=== PATIENT | male | born 1995 | race Caucasian/White ===

== ENCOUNTER 2017-04-01 02:37 | Emergency (ER) | payer OTHER ==
[2017-04-01 02:49] VITALS: BP 143/70
--- NOTE | 2017-04-01 03:04 | EDM.PDOC ---
ED HPI GENERAL MEDICAL PROBLEM - General Chief Complaint: Upper Extremity Injury/Pain Stated Complaint: crush injury Time Seen by Provider: 04/01/17 02:55 Source of Information: Reports: Patient, Old Records ([facility] EMR. No paper hospital chart available.) History Limitations: Reports: No Limitations - History of Present Illness INITIAL COMMENTS - FREE TEXT/NARRATIVE: The patient was brought to the emergency room via transport vehicle from [facility] for evaluation of a minor crush injury of his second finger of his left hand, which occurred at work at about 02:15 hours this evening. He caught his second between 2 pieces of metal with no history of paresthesias, neurological deficits , foreign body, or other complaints or injuries. The patient also denies any recent fever, cough, wheezing, dyspnea, etc... He is right-handed. His last tetanus booster was in this facility on 10/29/15 with TdaP given. Onset: Today, Sudden Onset Date: 04/01/17 Onset Time: 02:15 Duration: Constant Location: Reports: Upper Extremity, Left. Denies: Head, Neck, Chest, Abdomen, Back, Radiates to Quality: Reports: Same as Previous Episode, Throbbing Severity: Mild Improves with: Reports: Rest Worsens with: Reports: Movement Context: Reports: Trauma (As above) Associated Symptoms: Reports: No Other Symptoms. 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) Left 1st Digit Pain Score (Numeric/FACES): 1 (Injury site actually second digit of left hand) - Related Data Allergies Allergy/AdvReac Type Severity Reaction Status Date / Time No Known Allergies Allergy Verified 04/01/17 02:38 Home Meds: Home Meds Naproxen Sodium [Aleve] 220 mg PO DAILY PRN 10/29/15 [History] Non-Formulary Medication [NF Drug] 1 each PO DAILY PRN 04/01/17 [History] Protein Supplement [Protein Powder] 1 dose PO DAILY PRN 04/01/17 [History] Past Medical History HEENT History: Reports: Allergic Rhinitis, Impaired Vision, Other (See Below) Other HEENT History: he wears glasses Cardiovascular History: Reports: None. Denies: Afib, Aneurysm, Arrhythmia, Blood Clots/VTE/DVT, CAD, Heart Murmur, Hypertension Respiratory History: Reports: None. Denies: Asthma, PE Gastrointestinal History: Reports: None. Denies: Celiac Disease, Gastritis, GERD, GI Bleed, Inflammatory Bowel Disease, Irritable Bowel Syndrome, Jaundice, PUD Genitourinary History: Reports: None. Denies: BPH, Chronic Renal Insuffiency, Renal Calculus, STD, Urinary Incontinence, UTI, Recurrent Musculoskeletal History: Reports: Arthritis, Back Pain, Chronic, Fracture, Osteoarthritis, SLE. Denies: Gout, RA Other Musculoskeletal History: Possible history of fractures of the knockles of the right hand however never evaluated, coccyx fracture at about age 13 Neurological History: Reports: Concussion, Headaches, Chronic, Head Trauma, Other (See Below). Denies: Seizure Other Neuro History: 4 previous head concussions between ages 9 and 16 Psychiatric History: Reports: None. Denies: Abuse, Victim of, ADD, Addiction, Anxiety, Depression, Psych Hospitalization(s), PTSD, Suicide Attempt Endocrine/Metabolic History: Reports: None. Denies: Diabetes, Type I, Diabetes , Type II, Hypothyroidism, IDDM Hematologic History: Reports: None. Denies: Anemia, Blood Transfusion(s) Immunologic History: Reports: None. Denies: AIDS, HIV Oncologic (Cancer) History: Reports: None Dermatologic History: Reports: None. Denies: Eczema, Psoriasis - Infectious Disease History Infectious Disease History: Reports: None. Denies: C-Difficile, Chicken Pox, Measles, Meningitis, Mononucleosis, MRSA, Mumps, Rheumatic Fever, Rubella, Scarlet Fever, Shingles, VRE - Past Surgical History Head Surgeries/Procedures: Reports: None HEENT Surgical History: Reports: None. Denies: Adenoidectomy, Eye Surgery, Laser Surgery, LASIK, Myringotomy w Tube(s), Naso-Sinus Surgery, Oral Surgery, Tonsillectomy Cardiovascular Surgical History: Reports: None. Denies: Varicose Respiratory Surgical History: Reports: None. Denies: Thoracentesis GI Surgical History: Reports: None. 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 Denies: Thyroid Biopsy Neurological Surgical History: Denies: C-Spine, Discectomy, Laminectomy, Lumbar Spine, Spinal Fusion, Vertebroplasty Musculoskeletal Surgical History: Reports: None. Denies: Arthroscopic Procedure , Carpal Tunnel, Ganglion Cyst, ORIF, Shoulder Surgery Oncologic Surgical History: Reports: None Dermatological Surgical History: Reports: None Social & Family History - Family History Respiratory: Reports: COPD, Other (See Below) Other Respiratory Family Hisory: COPD and mother with history of tobacco use Oncologic: Reports: Lung, Metastatic, Pancreatic, Other (See Below) Other Oncologic Family History: Paternal grandmother with fatal lung cancer at age 44 with history of tobacco use, fatal pancreatic cancer in maternal aunt at age 56 with brain and lung metastases - Tobacco Use Smoking Status *Q: Current Every Day Smoker Tobacco Use Within Last Twelve Months: Snuff/Dip Other Tobacco Use Within Last Twelve Months: 1 ppd of cigarettes between ages 15 and 22 Years of Tobacco use: 5 (Chewing tobacco use at age 20) Packs/Tins Daily: 0.1 Used Tobacco, but Quit: No Smoking Cessation Information Provided To Patient: Yes Second Hand Smoke Exposure: No Second Hand Smoke Education Provided: No - Caffeine Use Caffeine Use: Reports: Coffee (6 cups per day), Energy Drinks (4 cans per day), Tea (1 bottle every 2 days). Denies: Soda - Alcohol Use Alcohol Use History: Yes Days Per Week of Alcohol Use: 0 (No previous DWIs, problems with alcohol abuse, etc.) Number of Drinks Per Day: 2 (Usually mixed drinks a couple times a month with previous history of binge drinking) Total Drinks Per Week: 0 Alcohol Use in Last Twelve Months: Yes Alcohol Use Frequency: Socially - Recreational Drug Use Recreational Drug Use: No Drug Use in Last 12 Months: No Recreational Drug Type: Denies: Amphetamines (Speed), Heroin, LSD (Acid), Marijuana/Hashish, Methamphetamine, Morphine - Living Situation & Occupation Living situation: Reports: Single, Other Occupation: Employed ([employer]) Review of Systems - Review of Systems Review Of Systems: ROS reveals no pertinent complaints other than HPI. ED EXAM, GENERAL - Physical Exam Exam: See Below Exam Limited By: No Limitations General Appearance: Alert, WD/WN, No Apparent Distress Head: Atraumatic, Normocephalic Neck: Normal Inspection, Supple, Non-Tender, Full Range of Motion. No: Lymphadenopathy (L), Lymphadenopathy (R), Thyromegaly Respiratory/Chest: No Respiratory Distress, Lungs Clear, Normal Breath Sounds, No Accessory Muscle Use, Chest Non-Tender Cardiovascular: Normal Peripheral Pulses, Regular Rate, Rhythm, No Edema, No Gallop, No JVD, No Murmur, No Rub. No: Gallop/S3, Gallop/S4, Friction Rub Peripheral Pulses: 4+: Radial (L), Radial (R) GI/Abdominal: Normal Bowel Sounds, Soft, Non-Tender, No Organomegaly, No Distention, No Abnormal Bruit, No Mass, Pelvis Stable (Male) Exam: Deferred Rectal (Males) Exam: Deferred Back Exam: Normal Inspection, Full Range of Motion. No: Muscle Spasm Extremities: Normal Range of Motion, No Pedal Edema, Normal Capillary Refill, Other (0.5 cm superficial laceration inferior to the nail of digit number to the left hand with some nail loosening no evidence of foreign body, deformity, crepitation, or fracture) Neurological: Alert, Oriented, CN II-XII Intact, Normal Cognition, Normal Gait, No Motor/Sensory Deficits Psychiatric: Normal Affect, Normal Mood Skin Exam: Warm, Dry, Wound/Incision (As above). No: Diaphoretic Lymphatic: No Adenopathy Course - Vital Signs Last Recorded V/S: Last Vital Signs Temp 36.5 C 04/01/17 02:42 Pulse 78 04/01/17 02:42 Resp 20 04/01/17 02:42 BP 143/70 H 04/01/17 02:42 Pulse Ox 99 04/01/17 02:42 Vital Signs - 24 hr 04/01/17 02:42 Temperature [ 36.5 C Oral] Pulse, 78 Peripheral [ Left Brachial] Respiratory 20 Rate Blood Pressure 143/70 H [Left Upper Arm ] O2 Sat by Pulse 99 Oximetry - Orders/Labs/Meds Orders: Active Orders 24 hr Category Date Time Status Fingers Second Digit Lt F1 [CR] Stat Exams 04/01/17 03:04 Ordered Bacitracin/Neomycin/Polymyxin [Triple Antibiotic Oint] Med 04/01/17 03:09 Once 1 each TOP ONETIME ONE Obtain Past Medical Record [OM.PC] Routine Oth 04/01/17 03:04 Active Medication Orders Neomycin/Polymyxin/Bacitracin (Triple Antibiotic Oint) 1 each TOP ONETIME ONE Stop: 04/01/17 03:10 Labs: None Meds: Medications Generic Name Dose Route Start Last Admin Trade Name Jagruti PRN Reason Stop Dose Admin Neomycin/Polymyxin/Bacitracin 1 each 04/01/17 03:09 Triple Antibiotic Oint TOP 04/01/17 03:10 ONETIME ONE - Radiology Interpretation Free Text/Narrative:: X-rays of digit #2 of the left hand, complete, shows no evidence of fracture, dislocation, etc. Soft tissue injury noted Departure - Departure Time of Disposition: 03:45 Disposition: Home, Self-Care 01 Condition: Good Clinical Impression: Laceration, Tobacco abuse counseling, Elevated blood pressure Contusion Qualifiers: Encounter type: initial encounter Contusion area: finger Finger: index finger Damage to nail status: with damage Laterality: left Qualified Code(s): S60.122A - Contusion of left index finger with damage to nail, initial encounter Osteoarthritis Qualifiers: Osteoarthritis location: multiple joints Osteoarthritis type: primary Qualified Code(s): M15.0 - Primary generalized (osteo)arthritis - Discharge Information Instructions: Crush Injury, Fingers or Toes, [id number], Contusion, Easy-to- Read Forms: ED Department Discharge Additional Instructions: 1. Follow up with your regular provider in 10-14 days as needed, if symptoms persist. 2. Tylenol 650 mg by mouth every 4 hours when necessary as directed. 3. Antibacterial soap wash/soak with subsequent antibacterial dressing such as Neosporin, etc. as directed 2 times per day until the wound or laceration site completely heals. Keep the area clean and dry with activity restrictions as discussed. 4. Work excuse- See Form 5. Stop all tobacco use SAMMY as directed/per provided information and consider contacting Quit LIne, etc.. 6. Decreased Intake as discussed, including immediate discontinuation of energy drinks - Problem List & Annotations (1) Contusion SNOMED Code(s): 093732856 Code(s): T14.8 - OTHER INJURY OF UNSPECIFIED BODY REGION Status: Acute Priority: High Current Visit: Yes Onset Date: 04/01/17 Annotation/Comment: : Minor contusion of digit #2 of the left hand. Bobcat/work excuse and Workmen' s Compensation forms were completed. No work restrictions with patient to return to work this evening. Symptomatic relief as per discharge instructions Qualifiers: Encounter type: initial encounter Contusion area: finger Finger: index finger Damage to nail status: with damage Laterality: left Qualified Code( s): S60.122A - Contusion of left index finger with damage to nail, initial encounter (2) Laceration SNOMED Code(s): 701268167 Code(s): HSQ7678 - Status: Acute Priority: High Current Visit: Yes Onset Date: 04/01/17 Annotation/Comment:: Minor laceration of digit #2 of left hand not requiring laceration repair. Wound care discussed. Tetanus booster up-to-date as above (3) Elevated blood pressure Code(s): I10 - ESSENTIAL (PRIMARY) HYPERTENSION Status: Acute Priority: Medium Current Visit: Yes Onset Date: 10/29/15 Annotation/Comment:: High- normal blood pressure with previous history of elevated blood pressures likely secondary to his energy drink use. He should decrease his caffeine intake SAMMY, including immediate discontinuation of energy drinks, which was extensively today. (4) Osteoarthritis SNOMED Code(s): 228275773 Code(s): M19.90 - UNSPECIFIED OSTEOARTHRITIS, UNSPECIFIED SITE Status: Chronic Priority: Medium Current Visit: Yes Annotation/Comment:: Stable by history Qualifiers: Osteoarthritis location: multiple joints Osteoarthritis type: primary Qualified Code(s): M15.0 - Primary generalized (osteo)arthritis (5) Tobacco abuse counseling SNOMED Code(s): 389316007, 130072613, 155128253 Code(s): Z71.6 - TOBACCO ABUSE COUNSELING Status: Chronic Priority: Medium Current Visit: Yes Annotation/Comment:: Tobacco cessation once again strongly encouraged with information provided. He was also counseled on the use of Nicorette - Problem List Review Problem List Initiated/Reviewed/Updated: Yes - My Orders Last 24 Hours: My Active Orders 04/01/17 03:04 Fingers Second Digit Lt F1 [CR] Stat Obtain Past Medical Record [OM.PC] Routine 04/01/17 03:09 Bacitracin/Neomycin/Polymyxin [Triple Antibiotic Oint] 1 each TOP ONETIME ONE - Assessment/Plan Last 24 Hours: My Active Orders 04/01/17 03:04 Fingers Second Digit Lt F1 [CR] Stat Obtain Past Medical Record [OM.PC] Routine 04/01/17 03:09 Bacitracin/Neomycin/Polymyxin [Triple Antibiotic Oint] 1 each TOP ONETIME ONE Assessment:: As above Plan: As above. Extensive precautions were given to the patient, who is in agreement with the treatment plan. See Patient Instructions for further treatment and plan.
[2017-04-01] MEDS ORDERED: Bacitracin/Neomycin/Polymyxin B Oint 0.9 GM U/D Packet TOP ONE (03:09)
== END 2017-04-01 03:50 | disposition home or self-care (01) ==
LOC: LL.ED 02:37
DX: S61.311A Laceration without foreign body of left index finger with damage to nail, initial encounter (principal); M19.90 Unspecified osteoarthritis, unspecified site; M15.0 Primary generalized (osteo)arthritis; F17.220 Nicotine dependence, chewing tobacco, uncomplicated; Z79.899 Other long term (current) drug therapy; Z71.6 Tobacco abuse counseling; W23.0XXA Caught, crushed, jammed, or pinched between moving objects, initial encounter; Y92.69 Other specified industrial and construction area as the place of occurrence of the external cause; Y99.0 Civilian activity done for income or pay
CPT/HCPCS: 73140-F1; 99283